=== PATIENT | female | born 1985 | race Caucasian/White ===

== ENCOUNTER 2022-09-25 06:52 | Day surgery (SDC) | payer OTHER ==
[2022-09-25] MEDS ORDERED: LIDOCAINE HCL 2% 100 MG/5 ML IJ ONE (06:53)
[2022-09-25] MEDS ORDERED: Decadron 4 MG INJ IV ONE (06:53)
[2022-09-25 07:14] LABS: HCG,QUALITATIVE URINE NEGATIVE (Negative)
[2022-09-25 07:18] LABS: POCT GLUCOSE 125 mg/dL (74 to 106)
[2022-09-25] MEDS ORDERED: Versed 2 MG/2 ML Injection ONE (07:38)
[2022-09-25] MEDS ORDERED: DIPRIVAN 200 MG/20 ML IV ONE (08:49)
[2022-09-25] MEDS ORDERED: Xylocaine-Mpf 2% 5 Ml Vial ONE (08:50)
--- NOTE | 2022-09-25 09:50 | XRAY ---
Indication: Left C2-C4 MBB. Intraoperative fluoroscopy provided for 33 seconds. 3 digital spot images submitted for interpretation demonstrates posterior needle tips projecting over the expected left C2-C4 nerve roots. Correlate with intraoperative findings/report.
--- NOTE | 2022-09-25 09:55 | XRAY ---
33 seconds of fluoroscopy was used in surgery for a left C2-C4 MBB.
[2022-09-25] MEDS ORDERED: Lactated Ringers 1,000 ML IV ONE (13:09)
== END 2022-09-25 09:19 | disposition home or self-care (01) ==
LOC: SDC-PAIN 06:52
PROVIDERS: ATTEND Psychiatry & Neurology Pain Medicine
DX: M47.812 Spondylosis without myelopathy or radiculopathy, cervical region (principal); E11.9 Type 2 diabetes mellitus without complications; Z79.899 Other long term (current) drug therapy
CPT/HCPCS: 64490; 64491; 72040; 77002; 81025; 82947; J1100; J2250; J2704

== ENCOUNTER 2022-10-09 07:39 | Day surgery (SDC) | payer OTHER ==
[2022-10-09] MEDS ORDERED: Decadron 4 MG INJ IV ONE (07:40)
[2022-10-09] MEDS ORDERED: BUPIVACAINE 0.5% VIAL IJ ONE (07:40)
[2022-10-09] MEDS ORDERED: Versed 2 MG/2 ML Injection ONE (08:35)
[2022-10-09] MEDS ORDERED: DIPRIVAN 200 MG/20 ML IV ONE (09:25)
--- NOTE | 2022-10-09 10:36 | XRAY ---
Indication: Left C2-C4 MBB. Intraoperative fluoroscopy provided for 31 seconds. 3 digital spot image submitted for interpretation demonstrates posterior needle tips projecting over the expected left C2-C4 nerve roots. Correlate with intraoperative findings/report.
--- NOTE | 2022-10-09 10:38 | XRAY ---
31 seconds of fluoroscopy was used in surgery for a left C2-C4 MBB.
[2022-10-09] MEDS ORDERED: Lactated Ringers 1,000 ML IV ONE (13:58)
== END 2022-10-09 09:49 | disposition home or self-care (01) ==
LOC: SDC-PAIN 07:39
PROVIDERS: ATTEND Psychiatry & Neurology Pain Medicine
DX: M47.812 Spondylosis without myelopathy or radiculopathy, cervical region (principal); E11.9 Type 2 diabetes mellitus without complications; Z79.899 Other long term (current) drug therapy
CPT/HCPCS: 64633; 64634; 72040; 77002; 81025; 82947; J1100; J2250; J2704

== ENCOUNTER 2022-10-23 10:12 | Day surgery (SDC) | payer OTHER ==
[2022-10-23] MEDS ORDERED: LIDOCAINE HCL 1% 50 MG/5 ML VL PF IJ ONE (10:13)
[2022-10-23] MEDS ORDERED: BUPIVACAINE 0.5% VIAL IJ ONE (10:13)
[2022-10-23] MEDS ORDERED: Decadron 4 MG INJ IV ONE (10:13)
[2022-10-23] MEDS ORDERED: DIPRIVAN 200 MG/20 ML IV ONE ×2 (12:23→12:35)
[2022-10-23] MEDS ORDERED: Lactated Ringers 1,000 ML IV ONE (13:30)
--- NOTE | 2022-10-23 14:16 | XRAY ---
Indication: Left C2-C4 RFA. Intraoperative fluoroscopy provided for 42 seconds. 10 digital spot image submitted for interpretation demonstrates posterior needle tips projecting over the expected left C2-C4 nerve roots. Correlate with intraoperative findings/report.
--- NOTE | 2022-10-23 14:18 | XRAY ---
42 seconds of fluoroscopy was used in surgery for a left C2-C4 RFA.
== END 2022-10-23 13:10 | disposition home or self-care (01) ==
LOC: SDC-PAIN 10:12
PROVIDERS: ATTEND Psychiatry & Neurology Pain Medicine
DX: M47.816 Spondylosis without myelopathy or radiculopathy, lumbar region (principal); E11.9 Type 2 diabetes mellitus without complications; Z79.899 Other long term (current) drug therapy
CPT/HCPCS: 64633; 64634; 72040; 77002; 81025; 82947; J1100; J2001; J2704

== ENCOUNTER 2023-02-28 22:19 | Emergency (ER) | payer OTHER ==
--- NOTE | 2023-02-28 22:36 | ERPHSYRPT ---
- History of Present Illness Time Seen by Provider: 02/28/23 22:36 Source: patient Exam Limitations: no limitations Physician History: 37-year-old female presents to the emergency room with right lower extremity swelling for the past day. Patient reports that she measured her right calf and it was an inch and a half larger than her left. She also has pain on the medial aspect of her lower leg as well. She denies any numbness, tingling, recent travel, recent surgery. Patient recently stopped her OCP. She has no history of blood clots or personal or family history of clotting disorders. Method of Injury: unknown Occurred: this morning Quality: constant Severity of Pain-Max: mild Severity of Pain-Current: mild Lower Extremities Pain: leg: right Modifying Factors: Improves With: nothing. Worsens With: movement Associated Symptoms: none Allergies/Adverse Reactions: citalopram [From Celexa] Allergy (Mild, Verified 02/28/23 22:26) levofloxacin [From Levaquin] Allergy (Mild, Verified 02/28/23 22:26) unknown wheat Adverse Reaction (Verified 02/28/23 22:47) Home Medications: Esomeprazole Magnesium [Nexium] 20 mg PO DAILY 05/30/14 [History] Sitagliptin Phosphate [Januvia] 50 mg PO DAILY 02/13/16 [History] Venlafaxine HCl ER 75 mg [Effexor XR 75 MG] 150 mg PO DAILY 02/13/16 [History] Atorvastatin Calcium 40 mg PO DAILY 02/28/23 [History] Baclofen 10 mg [Lioresal 10 mg] 10 mg PO DAILY 02/28/23 [History] Buspirone HCl 5 mg [Buspar 5 mg] 10 mg PO DAILY 02/28/23 [History] Spironolactone 80 mg PO DAILY 02/28/23 [History] lisinopriL [Lisinopril] 5 mg PO DAILY 02/28/23 [History] Hx Influenza Vaccination/Date Given: No Hx Pneumococcal Vaccination/Date Given: No - Review of Systems Constitutional: No Symptoms Eyes: No Symptoms Ears, Nose, & Throat: No Symptoms Respiratory: No Symptoms Cardiac: No Symptoms Abdominal/Gastrointestinal: No Symptoms Musculoskeletal: Other (RLE swelling) Skin: No Symptoms Neurological: No Symptoms Psychological: No Symptoms Endocrine: No Symptoms Hematologic/Lymphatic: No Symptoms Immunological/Allergic: No Symptoms All Other Systems: Reviewed and Negative - Past Medical History Pertinent Past Medical History: Yes Neurological History: No Pertinent History ENT History: No Pertinent History Cardiac History: Hypertension Respiratory History: No Pertinent History Endocrine Medical History: Diabetes Type II Musculoskeletal History: Other GI Medical History: GERD, Esophageal Disorder History: No Pertinent History Psycho-Social History: Anxiety, Depression Female Reproductive Disorders: Other Other Medical History: esoph. reflux. Back/neck pain. Polycystic syndrome - Past Surgical History Past Surgical History: Yes Neuro Surgical History: No Pertinent History Cardiac: No Pertinent History Respiratory: No Pertinent History Gastrointestinal: Cholecystectomy Genitourinary: No Pertinent History Musculoskeletal: No Pertinent History, Orthopedic Surgery Female Surgical History: Dilation & Curettage, Other Other Surgical History: dental procedure. genital warts removed. right breast cyst removed. thyroid removed - Social History Smoking Status: Never smoker Exposure to second hand smoke: No Drug Use: none - Nursing Vital Signs Nursing Vital Signs: Initial Vital Signs Temperature 97.4 F 02/28/23 22:20 Pulse Rate 101 H 02/28/23 22:20 Respiratory Rate 18 02/28/23 22:20 Blood Pressure 151/126 02/28/23 22:20 O2 Sat by Pulse Oximetry 99 02/28/23 22:20 Pain Scale Pain Intensity 8 - Physical Exam General Appearance: no apparent distress Cardiovascular/Respiratory Exam: regular rate/rhythm Legs Exam: right leg: soft tissue tenderness (medial aspect), swelling (40cm vs 38cm on left) Neuro/Tendon Exam: normal sensation, normal motor functions, normal tendon functions Mental Status Exam: alert, oriented x 3, cooperative Skin Exam: normal color, warm, dry SpO2 Interpretation: normal SpO2: 99 O2 Delivery: Room Air - Radiology Ultrasound Exam Right Venous Lower Extremity Ultrasound: tele radiology report, negative Ordered Tests: Active Orders 24 hr Category Date Time Status VENOUS UNILAT/LIMITED EXTREMIT [US] Stat Exams 02/28/23 22:48 Taken BMP Stat Lab 02/28/23 23:05 Completed CBC Stat Lab 02/28/23 23:05 Completed PROTIME WITH INR Stat Lab 02/28/23 23:05 Completed PTT Stat Lab 02/28/23 23:05 Completed Lab/Rad Data: Laboratory Result Diagrams 02/28/23 23:05 02/28/23 23:05 Laboratory Results 02/28/23 02/28/23 02/28/23 Range/Units 23:05 23:05 23:05 WBC 10.8 H (4.0-10.5) x10^3/uL RBC 4.87 (4.1-5.4) x10^6/uL Hgb 13.6 (12.0-16.0) g/dL Hct 41.9 (35-47) % MCV 86.0 (78-100) fL MCH 27.9 (26-32) pg MCHC 32.5 (32-36) g/dL RDW 12.7 (11.5-14.0) % Plt Count 280 (150-450) x10^3/uL MPV 9.5 (7.5-11.0) fL PT 10.6 (9.4-12.5) SECONDS INR 0.97 (0.8-3.0) APTT 28.2 (25.1-36.5) SECONDS Sodium 137 (137-145) mmol/L Potassium 3.9 (3.5-5.1) mmol/L Chloride 96 L (98-107) mmol/L Carbon Dioxide 30 (22-30) mmol/L Anion Gap 14.5 (5-15) MEQ/L BUN 10 (7-17) mg/dL Creatinine 0.76 (0.52-1.04) mg/dL Estimated GFR > 60.0 ML/MIN Glucose 160 H (74-106) mg/dL Calcium 9.4 (8.4-10.2) mg/dL - Progress Progress: unchanged Progress Note: Laboratory evaluation was negative. Right lower extremity venous duplex was negative for DVT. I advised the patient to use compression stockings and elevate the extremity to help with the swelling. Patient has a follow-up with her PCP next week. Counseled pt/family regarding: lab results, diagnosis, need for follow-up, rad results Medical Desision Making - Diagnostic Testing Diagnostic test were ordered, analyzed, and reviewed by me: Yes Radiological Interpretation: Interpreted by me, Reviewed by me, Teleradiologist Report - Risk of complications Low Risk: Low risk of morbidity from additional dx testing or treatment - Departure Departure Disposition: Home Clinical Impression: Right leg swelling Condition: Good Critical Care Time: No Referrals: LUISANA BENEDICT MD [Primary Care Provider] - Follow up/PCP as directed Instructions: Swelling
[2023-02-28 23:11] LABS: Hematocrit 41.9 % (35-47); Hemoglobin 13.6 g/dL (12.0-16.0); Mean Corpuscular Hemoglobin 27.9 pg (26-32); Mean Corpuscular Hgb Concent. 32.5 g/dL (32-36); Mean Platelet Volume 9.5 fL (7.5-11.0); Platelet Count 280 x10^3/uL (150-450); Red Blood Count 4.87 x10^6/uL (4.1-5.4); Red Cell Distribution Width 12.7 % (11.5-14.0); White Blood Count 10.8 x10^3/uL (4.0-10.5)
[2023-02-28 23:25] LABS: ANION GAP 14.5 MEQ/L (5-15); BLOOD UREA NITROGEN 10 mg/dL (7-17); CHLORIDE 96 mmol/L (98-107); Calcium 9.4 mg/dL (8.4-10.2); Carbon Dioxide 30 mmol/L (22-30); Creatinine 1 0.76 mg/dL (0.52-1.04); EST GLOMERULAR FILTRATION RATE > 60.0 ML/MIN; Glucose 160 mg/dL (74-106); Potassium 3.9 mmol/L (3.5-5.1); SODIUM 137 mmol/L (137-145)
[2023-02-28 23:26] LABS: INR 0.97 (0.8-3.0); PROTIME 10.6 SECONDS (9.4-12.5); PTT 28.2 SECONDS (25.1-36.5)
[2023-03-01 00:36] VITALS: BP 125/83
[2023-03-01 00:37] VITALS: PULSE 86
[2023-03-01 01:33] VITALS: O2SAT 99
--- NOTE | 2023-03-01 07:35 | XRAY ---
Indication: Right leg pain. 2-dimensional sonogram and color Doppler imaging of the major venous vessels of the right leg performed. Comparison: None No thrombus seen in the examined deep venous vessels of the right leg including greater saphenous vein. Veins demonstrate normal compressibility. Venous waveforms are normal with and without augmentation. Impression: Right leg negative for DVT. Comment: Preliminary report was given.
== END 2023-03-01 00:38 | disposition home or self-care (01) ==
LOC: ED 22:19
DX: M79.89 Other specified soft tissue disorders (principal); M79.661 Pain in right lower leg; I10 Essential (primary) hypertension; E11.9 Type 2 diabetes mellitus without complications; Z79.84 Long term (current) use of oral hypoglycemic drugs; Z79.899 Other long term (current) drug therapy
CPT/HCPCS: 36415; 80048; 85027; 85610; 85730; 93971; 99283

== ENCOUNTER 2023-03-12 07:36 | Day surgery (SDC) | payer OTHER ==
[~2023-03-12 07:36] MED LIST: DIPRIVAN 200 MG/20 ML IV ONE; Xylocaine-Mpf 2% 5 Ml Vial ONE
[2023-03-12] MEDS ORDERED: Depo-Medrol 40 MG/ML IM ONE (07:37)
[2023-03-12] MEDS ORDERED: BUPIVACAINE 0.5% VIAL IJ ONE (07:37)
[2023-03-12 07:46] LABS: HCG URINE TEST NEGATIVE (NEGATIVE)
--- NOTE | 2023-03-12 09:51 | XRAY ---
Indication: Bilateral SI joint injection. Intraoperative fluoroscopy provided for 19 seconds. 4 digital spot images submitted for interpretation demonstrates posterior needle tip projecting over the expected left and right SI joint. Correlate with intraoperative findings/report.
--- NOTE | 2023-03-12 10:46 | XRAY ---
19 seconds of fluoroscopy was used in surgery for a bilatral sacroiliac joint injection.
[2023-03-12] MEDS ORDERED: Lactated Ringers 1,000 ML IV ONE (10:48)
== END 2023-03-12 08:55 | disposition home or self-care (01) ==
LOC: SDC-PAIN 07:36
PROVIDERS: ATTEND Psychiatry & Neurology Pain Medicine
DX: M46.1 Sacroiliitis, not elsewhere classified (principal); E11.9 Type 2 diabetes mellitus without complications; Z79.899 Other long term (current) drug therapy
CPT/HCPCS: 27096; 72202; 77002; 81025; 82947; J1030; J2704; G0260

== ENCOUNTER 2024-06-30 07:31 | Day surgery (SDC) | payer OTHER ==
[2024-06-30] MEDS ORDERED: Depo-Medrol 40 MG/ML IM ONE (07:32)
[2024-06-30] MEDS ORDERED: BUPIVACAINE 0.5% VIAL IJ ONE (07:32)
[2024-06-30] MEDS ORDERED: DIPRIVAN 200 MG/20 ML IV ONE (09:39)
--- NOTE | 2024-06-30 12:25 | XRAY ---
Indication: Right SI joint and right hip injection. Intraoperative fluoroscopy provided for 28 seconds. 2 digital spot image submitted for interpretation demonstrates posterior needle tip projecting over right SI joint. Second needle tip lateral to right femur neck. Small amount of contrast injected for both needle tip placement. Correlate with intraoperative findings/report.
--- NOTE | 2024-06-30 12:36 | XRAY ---
28 seconds of fluoroscopy was used in surgery for a right sacroiliac joint and intra-articular hip injection.
== END 2024-06-30 10:18 | disposition home or self-care (01) ==
LOC: SDC-PAIN 07:31
PROVIDERS: ATTEND Psychiatry & Neurology Pain Medicine
DX: M46.1 Sacroiliitis, not elsewhere classified (principal); M16.11 Unilateral primary osteoarthritis, right hip; E11.9 Type 2 diabetes mellitus without complications
CPT/HCPCS: 20610; 27096; 73501; 77002; 82947; J2704; Q9966; G0260